=== PATIENT | female | born 1990 | race Caucasian/White ===

== ENCOUNTER → 2017-07-20 15:33 | Outpatient (CLI) | payer BC, OTHER, SELFPAY ==
[2017-07-23 11:12] LABS: HPV Reflexed? NOT INDICATED
== END ==
PROVIDERS: Visit Provider Obstetrics & Gynecology
DX: Z12.4 Encounter for screening for malignant neoplasm of cervix (principal); Z12.72 Encounter for screening for malignant neoplasm of vagina
CPT/HCPCS: 88175; G0145

== ENCOUNTER → 2018-08-08 15:30 | Outpatient (CLI) | payer BC, SELFPAY ==
[2016-07-02 05:49] VITALS: BMI 28.1
[2018-08-10 16:59] LABS: HPV Reflexed? NOT INDICATED
== END ==
PROVIDERS: Visit Provider Obstetrics & Gynecology
DX: N39.0 Urinary tract infection, site not specified (principal); Z12.4 Encounter for screening for malignant neoplasm of cervix
CPT/HCPCS: 87077; 87086; 87088; 87186; 88175; G0145

== ENCOUNTER → 2018-11-23 | Outpatient (CLI) | payer BC, SELFPAY ==
[2016-07-02 05:49] VITALS: BMI 28.1
[2018-11-23 15:58] LABS: Absolute Lymphocyte Count 1.34 X10^3/uL (0.83-4.51); Absolute Neutrophil Count 4.3 X10^3/uL (2.0-7.7); Basophil# 0.03 X10^3/uL; Basophil% 0.5 % (0-1); Eosinophil# 0.07 X10^3/uL; Eosinophils% 1.1 % (0-5); Hemoglobin 12.3 g/dL (12.0-15.0); Lymphocyte # 1.34 X10^3/ul (4.0); Lymphocyte % 21.1 % (19-41); Mean Corp Hgb Conc 34.2 g/dL (32-36); Mean Corpuscular Hgb 31.5 pg (27.0-32.0); Mean Corpuscular Volume 92.3 fL (81-99); Mean Platelet Vol. 10.9 fl (6.2-12.0); Monocyte# 0.62 X10^3/uL; Monocyte% 9.8 % (0-10); NRBC Flagged by Analyzer 0 % (0-5); Neutrophil # 4.26 X10^3/uL (2.7-7.7); Neutrophil % 67.2 % (47-70); Platelet Count 202 K/mm3 (150-450); RBC Distribution Width CV 12.7 % (11.6-14.6); RBC Distribution Width SD 42.8 fl (35.1-43.9); White Blood Count 6.3 K/mm3 (4.4-11.0)
[2018-11-23 16:02] LABS: Thyroid Stim Hormone (TSH) 0.45 uIU/mL (0.358-3.74)
[2018-11-23 16:21] LABS: Color, Urine Yellow (Yellow); Glucose, Dipstick Normal (Normal); Ketone-Dipstick Negative (Negative); Leukocyte Esterase-Dipstick Negative /ul (Negative); Nitrite-Dipstick Negative (Negative); Occult Blood-Urine Negative /ul (Negative); Protein-Dipstick Negative (Negative); Specific Gravity, Urine 1.015 (1.002-1.030); Urine Bilirubin Dipstick Negative (Negative); Urine Clarity Sl. Cloudy (Clear); Urine Urobilinogen Normal (Normal)
[2018-11-23 17:14] LABS: Chlamydia Trachomatis by PCR Negative (Negative); Neisserai gonorrhoeae by PCR Negative (Negative); Probe Check PASS; Sample Adequacy Control PASS; Specimen Processing Control PASS
[2018-11-24 11:48] LABS: HIV - WCH Non-Reactive (Nonreactive); Hepatitis B Surface Antigen Non-Reactive (Nonreactive); Hepatitis C Antibody Non-Reactive (Nonreactive); Rubella IgG 67.7 IU/mL
[2018-11-25 04:46] LABS: Prenatal RPR NONREACTIVE (NONREACTIVE)
[2018-11-29 08:48] LABS: PARVOVIRUS B19 IGG 0.3 index (0.0-0.8); PARVOVIRUS B19 IGM 0.4 index (0.0-0.8)
== END | disposition home or self-care (01) ==
PROVIDERS: Visit Provider Obstetrics & Gynecology
DX: Z34.81 Encounter for supervision of other normal pregnancy, first trimester (principal); Z11.3 Encounter for screening for infections with a predominantly sexual mode of transmission
CPT/HCPCS: 36415; 81002; 84443; 85025; 86703; 86747; 86762; 86803; 87340; 87491; 87591

== ENCOUNTER → 2019-04-13 10:08 | Outpatient (CLI) | payer BC, OTHER, SELFPAY ==
[2019-04-13 11:54] LABS: Hematocrit 32.5 % (37-47); Hemoglobin 10.9 g/dL (12.0-15.0); Mean Corp Hgb Conc 33.5 g/dL (32-36); Mean Corpuscular Hgb 31.6 pg (27.0-32.0); Mean Corpuscular Volume 94.2 fL (81-99); Mean Platelet Vol. 11.1 fl (6.2-12.0); Platelet Count 177 K/mm3 (150-450); RBC Distribution Width CV 12.6 % (11.6-14.6); RBC Distribution Width SD 43.3 fl (35.1-43.9); Red Blood Count 3.45 M/mm3 (4.2-5.4); White Blood Count 7.8 K/mm3 (4.4-11.0)
[2019-04-13 11:59] LABS: Glucose Challenge Gest 1H 50g 128 mg/dL (70-140)
== END ==
PROVIDERS: Referring Provider Obstetrics & Gynecology; Visit Provider Obstetrics & Gynecology
DX: Z34.82 Encounter for supervision of other normal pregnancy, second trimester (principal)
CPT/HCPCS: 36415; 82950; 85027

== ENCOUNTER 2019-07-05 05:10 | Inpatient (IN) | payer OTHER, BC, SELFPAY ==
--- NOTE | 2019-07-03 11:54 | HP.PCM_ITS ---
History and Physical Date of Admission: 07/03/19 HPI: The patient is a 28 year old female presenting for pre-operative visit. She is scheduled for? and?bilateral salpingectomy, for?repeat c/s and sterilization on?07/05/2019. ??Procedure discussed along with risks, benefits and complications. ?Other alternatives discussed for management. Consent form signed??Yes.? PAST MEDICAL HISTORY PAST MEDICAL HISTORY Diagnosis Date ? Anemia ? ? Asthma ? ? Asthma ? ? allergy induced ? Fx wrist ? ? right ? Influenza B ? ? Injury of right shoulder ? ? torn labrum ? ? PAST SURGICAL HISTORY PAST SURGICAL HISTORY Procedure Laterality Date ? SECTION HX ? ? ? x2 ? IUD INSERTION ([employer]PER[employer] DEPT)_*FL ? ? ? removed ? PAST SURGICAL HISTORY OF ? ? ? right shoulder ? ? CURRENT MEDICATIONS Current Outpatient Medications Medication Sig Dispense Refill ? FERROUS SULFATE ORAL Take by mouth. ? ? ? Glntaumb-Ow-Vyn-Fe-FA ( VITAMIN) tab Take 1 tablet by mouth. ? ? ? ALBUTEROL INHALATION Inhale as instructed. ? ? ? No current facility-administered medications for this visit.? ? ALLERGIES:?Patient has no known allergies. ? PERSONAL HISTORY:? SOCIAL HISTORY Social History ? Tobacco Use ? Smoking status: Never Smoker ? Smokeless tobacco: Never Used Substance Use Topics ? Alcohol use: Not Currently ? ? Comment: special occasions only ? Drug use: Never ? FAMILY HISTORY:? FAMILY HISTORY FAMILY HISTORY Problem Relation Age of Onset ? other (fibrocystic breast) Mother ? ? No Known Problems Father ? ? No Known Problems Brother ? ? No Known Problems Maternal Grandmother ? ? Prostate Cancer Maternal Grandfather ? ? Diabetes Paternal Grandmother ? ? Hyperlipidemia Paternal Grandmother ? ? Diabetes Paternal Grandfather ? ? Hyperlipidemia Other ? ? No Known Problems Brother ? ? REVIEW OF SYMPTOMS: GENERAL: denies fevers or chills ENDOCRINOLOGY: has not been on steroids Cardiology : denies palpitations or chest pain Respiratory: denies SOB or cough Hematology: denies history of prolonged bleeding or easy bruising or VTE Allergy: Denies history of personal or family history of allergy to anesthesia ? ? PHYSICAL EXAMINATION: ? VITALS:?Last menstrual period 10/04/2018. ? GENERAL:??The patient is well nourished, well hydrated in no acute distress. ?, The patient is oriented to time, place, and person. NECK:?Supple. No lynphadenopathy, normal thyroid, no thyromegaly. LUNGS:?Clear to auscultation bilaterally. no wheezes, rhonchi or rales HEART:?Regular rate and rhythm, Normal heart sounds and No murmurs or gallops ABD- soft, nontender, gravid ? IMPRESSION:?Estimated Date of Delivery: 07/11/19,?, prevoius c/s and sterilization request ? ? PLAN:???The risks/benefits/alternatives and personal involved for the planned? delivery with bilateral salpingectomy?were reviewed with the patient. Her questions were answered to her satisfaction and she desires to p roceed. ?Consent was signed. ?I reviewed with her postop instructions and expectations. ? ? I have reviewed and updated past medical and surgical history, medications and allergies. This H&P was completed in my office on 07/03/2019. ?
[2019-07-05] VITALS (19 sets, daily range): BP systolic 94–137; BP diastolic 46–87; PULSE 73–94; RESP 14–18; TEMP 36.1–37.1; O2SAT 98–100; BMI 28.3
[2019-07-05] MEDS: Lactated Ringers 1,000 ML 999 ML IV (05:40)
[2019-07-05 05:52] LABS: Absolute Lymphocyte Count 1.99 X10^3/uL (0.83-4.51); Absolute Neutrophil Count 5.1 X10^3/uL (2.0-7.7); Basophil# 0.03 X10^3/uL; Basophil% 0.4 % (0-1); Eosinophil# 0.17 X10^3/uL; Eosinophils% 2.1 % (0-5); Hematocrit 34.7 % (37-47); Hemoglobin 11.4 g/dL (12.0-15.0); Lymphocyte # 1.99 X10^3/ul (4.0); Lymphocyte % 25.1 % (19-41); Mean Corp Hgb Conc 32.9 g/dL (32-36); Mean Corpuscular Hgb 30.9 pg (27.0-32.0); Mean Platelet Vol. 10.6 fl (6.2-12.0); Monocyte# 0.64 X10^3/uL; Monocyte% 8.1 % (0-10); NRBC Flagged by Analyzer 0 % (0-5); Neutrophil # 5.05 X10^3/uL (2.7-7.7); Neutrophil % 63.7 % (47-70); Platelet Count 144 K/mm3 (150-450); RBC Distribution Width CV 13.1 % (11.6-14.6); Red Blood Count 3.69 M/mm3 (4.2-5.4); White Blood Count 7.9 K/mm3 (4.4-11.0)
[2019-07-05] MEDS: Lactated Ringers 1,000 ML 150 ML IV (06:43)
[2019-07-05] MEDS: Sodium Citrate/Citric Acid 30 ML UDC PO (07:08)
[2019-07-05] MEDS: Cefazolin 2 GM in 0.9% Normal Saline 100 ML IV (07:20)
--- NOTE | 2019-07-05 08:26 | OP.PCM_ITS ---
Delivery Classification: Scheduled Final EZEKIEL: 07/11/19 Final EZEKIEL Source: US <20 weeks Gestational age: 39 Weeks and 1 Days water filtration technician: Maksim Santos Type of Anesthesia:: Spinal Special Medications: duramorph Date of Procedure: 07/05/19 Pre-Operative Diagnosis: prevoius c/s, sterilization request Post-Operative Diagnosis: same Indications for : Repeat Elective , Desires elective sterilization Description of Procedure: The patient was taken to the operating room. She was prepped and draped in the dorsal supine position with a leftward tilt. A Pfannenstiel skin incision was made approximately 2 cm above the symphysis pubis and carried through to underlying layer fascia with the scalpel. The fascia was incised incised in the midline and extended laterally with the Alonso scissors. The fascia was dissected off the rectus muscles with blunt and sharp dissection. The rectus muscles were in the midline and the peritoneum was entered bluntly. The peritoneal incision was stretched and the bladder blade was placed. There were no peritoneal adhesions. The uterine incision was made in a low transverse fashion with the scalpel and extended superiorly and inferiorly with blunt dissection. The amniotic membranes were ruptured bluntly and clear amniotic fluid returned. The infant's head was brought to the incision in the flexed position and delivered without difficulty. The remainder of the infant was delivered with gentle traction and fundal pressure in the standard fashion. The mouth and nares were bulb suctioned. The cord was clamped and cut as the was stimulated. Cord clamping was delayed. The was handed off to the waiting nursing staff. The placenta was delivered with fundal massage and gentle traction in the standard fashion. The uterus was exteriorized and cleared of all clots and debris. The cervix was dilated with a ring forcep. The uterine incision was closed with #1 Vicryl in a running locked fashion. The incision was examined and was found to be hemostatic. The uterus was placed back into the peritoneal cavity and hemostasis was again confirmed. The intact mesenteric portion of the fallopian tube was clamped, sealed and transected with the LigaSure device. It was then amputated from the corneal edge. The same procedure was performed on the contralateral side. Both fallopian tubes were handed off and sent to pathology. The rectus muscles were examined and any bleeding was Bovie cauterized. The parietal peritoneum and rectus muscles were closed en bloc with an 0 Vicryl running suture. The surgical teams outer gloves were then changed. The rectus fascia was examined and any bleeding was Bovie cauterized and the rectus fascia was closed with 1 Vicryl suture in a running standard fashion. The subcutaneous tissue was examining and any bleeding was Bovie cauterized. The subcutaneous tissue was reapproximated with 3-0 Vicryl suture. The skin was closed in a subcuticular fashion by the MOTHERCRAFT NURSE with me present in the labor and delivery suite. I performed the remainder of the procedure with assistance. All sponge, lap, and needle counts were correct. The patient was taken to her room for recovery in a stable condition. Amniotic Membrane Rupture Type: Artificial Amniotic Fluid Description: Clear Placenta Disposition: [facility] Specimen(s) sent to pathology: fallopian tubes Drain: Ruiz to straight drain Cord Entanglement: None Cord Vessel Description: 3 Vessels Esitmated Blood Loss (ml): 700 Gender: Male (1 minute): 9 (5 minute): 9 Delayed cord clamping: Yes Antibiotic Given: Ancef 2 grams IV x1 Complications: None - Admit VTE Documentation VTE Present on Admission: No VTE Mechan Device Prophylaxis: SCD's VTE Pharm Prophylaxis ordered?: No
--- NOTE | 2019-07-05 08:30 | FALS_PTH ---
PATIENT: SHAQUILLE MILLER LOC: [facility] U#:[id number] AGE/SX: 28/F ROOM: WP004 RE07/05/[address]: Dr. Haven Meade MD : 1990 BED: 1 DIS: 07/06/2019 SPEC #: [id number] RECD: 07/05/19 08:51 STATUS: TOM KARYN #: [id number] CHARISSE: 07/05/19 08:[address]: Haven Meade DEPT: SURGICAL PATHOLOGY RECD BY: Bowen Knox ENTERED: 07/05/19 10:21 SP TYPE: FALL TUBES OTHR DR: Dr. Brent Dickson MD No Primary Care Phys Tissues: A - Fallopian tube B - Fallopian tube Procedures: Surgery Specimen Level II HEADER OPERATION: Tubal ligation PRE-OP DIAGNOSIS: Sterilization TISSUE SUBMITTED: A - Right fallopian tube, B - Left fallopian tube MICROSCOPIC DIAGNOSIS A. Right fallopian tube, salpingectomy: Complete segment of fallopian tube with no pathologic change. B. Left fallopian tube, salpingectomy: Complete segment of fallopian tube with no pathologic change. AM:lien 07/06/19 MICROSCOPIC DESCRIPTION Slides are reviewed. GROSS DESCRIPTION A - Received is one container labeled with the patient's name and designated right fallopian tube. The specimen consists of a fallopian tube including fimbrial end measuring 8.5 cm in length and 0.7 cm in diameter. Sections reveal unremarkable cut surfaces. Carpenter/Labor sections are submitted in one cassette. B - Received is one container labeled with the patient's name and designated left fallopian tube. The specimen consists of a fallopian tube including fimbrial end measuring 6 cm in length and 0.5 cm in diameter. Sections reveal unremarkable cut surfaces. Carpenter/Labor sections are submitted in one cassette. / SJ:lein 07/05/19 TC:4 CPT: 34704 x2
[2019-07-05] MEDS: Oxytocin 30 units/NS 500 ml 30 UNITS/500 ML IV.SOLN 167 UNITS IV (08:41)
[2019-07-05] MEDS: DiphenhydrAMINE 25 MG Capsule PO (09:46)
[2019-07-05] MEDS: Lactated Ringers 1,000 ML 100 ML IV (11:55)
[2019-07-05] MEDS: 0.9% Saline Lock 10 ML Syringe IV ×2 (14:43→20:12)
[2019-07-05] MEDS: Ketorolac 30 MG/ML Syringe IV ×2 (14:43→20:11)
[2019-07-06] MEDS: Ketorolac 30 MG/ML Syringe IV ×3 (02:30→14:13)
[2019-07-06] MEDS: 0.9% Saline Lock 10 ML Syringe IV ×3 (02:30→14:14)
[2019-07-06 04:25] VITALS: BP 103/59; PULSE 78; RESP 18; TEMP 37.1
[2019-07-06 04:43] LABS: Hematocrit 29.4 % (37-47); Hemoglobin 9.8 g/dL (12.0-15.0); Mean Corp Hgb Conc 33.3 g/dL (32-36); Mean Corpuscular Hgb 31.5 pg (27.0-32.0); Mean Corpuscular Volume 94.5 fL (81-99); Platelet Count 123 K/mm3 (150-450); RBC Distribution Width CV 13.1 % (11.6-14.6); RBC Distribution Width SD 45.1 fl (35.1-43.9); Red Blood Count 3.11 M/mm3 (4.2-5.4); White Blood Count 10.6 K/mm3 (4.4-11.0)
--- NOTE | 2019-07-06 08:40 | PCM.PN.OB ---
Subjective: Pain well controlled. Average lochia. - Physical Exam Vitals/I&O's: Vital Signs Temp Pulse Resp BP Pulse Ox 98.7 F 78 18 103/59 L 99 07/06/19 04:25 07/06/19 04:25 07/06/19 04:25 07/06/19 04:25 07/05/19 20:29 Oxygen Delivery Method Room Air Weight: 70.3 kg Body Mass Index (BMI) 28.3 Intake and Output for Last 24 Hours 07/04/19 07/05/19 07/06/19 23:59 23:59 23:59 Intake Total 3234.83 / 3234.83 Output Total 2660 / 2660 Balance 574.83 / 574.83 General: Alert, Cooperative, No apparent distress Abdomen: Soft, Distended - Mildly, softly, Tender - Appropriately Extremities: Edema - 1+ Skin: Incision - bandage is clean, dry and intact Laboratory Results 07/06/19 04:30: WBC 10.6, RBC 3.11 L, Hgb 9.8 L, Hct 29.4 L, MCV 94.5, MCH 31.5, MCHC 33.3, RDW Std Deviation 45.1 H, RDW Coeff of Sachin 13.1, Plt Count 123 L, MPV 11.0 Current Medications Acetaminophen (Tylenol) 1,000 mg PO Q8H PRN PRN Reason: Pain Score 1-3/10 Bisacodyl (Dulcolax) 10 mg RECTAL UD PRN PRN Reason: If no BM Diphenhydramine HCl (Benadryl) 25 mg PO Q6H PRN PRN PRN Reason: ITCHING Stop: 07/06/19 09:02 Last Admin: 07/05/19 09:46 Dose: 25 mg Documented by: Hydrocortisone (Hytone) 1 applic TOPICAL TID PRN PRN; Protocol PRN Reason: Discomfort Naloxone HCl 4 mg/ Dextrose 504 mls @ 0 mls/hr IV .Q0M PRN; Protocol PRN Reason: Respiratory depression Ketorolac Tromethamine (Toradol (Bkc)) 30 mg IV Q6H BURT Stop: 07/07/19 08:01 Last Admin: 07/06/19 02:30 Dose: 30 mg Documented by: Methylergonovine Maleate (Methergine) 0.2 mg IM X1 PRN PRN Reason: Uterine Atony Nalbuphine HCl (Nubain) 5 mg IV Q3H PRN PRN PRN Reason: ITCHING Stop: 07/06/19 09:02 Naloxone HCl (Narcan) 0.02 mg IV Q1M PRN PRN Reason: RR <10 and pt unresponsive Naproxen (Naprosyn) 250 - 500 mg PO Q8H PRN PRN PRN Reason: Pain Score 1-3/10 Ondansetron HCl (Zofran) 4 mg IV Q4H PRN PRN PRN Reason: Nausea Oxycodone HCl (Oxyir) 5 - 10 mg PO Q4H PRN PRN PRN Reason: Pain Score 4-10/10 Prochlorperazine Edisylate (Compazine Iv) 10 mg IV Q6H PRN PRN PRN Reason: NAUSEA Senna/Docusate Sodium (Senokot-S, Scarlett-Colace) 0 tablet PO DAILY PRN PRN Reason: Constipation Simethicone (Mylicon) 80 mg PO PCHS PRN PRN Reason: Indigestion/stomach pain Sodium Chloride () 5 - 15 ml IV UD PRN PRN Reason: SALINE FLUSH Last Admin: 07/06/19 02:30 Dose: 10 ml Documented by: Medical Necessity - Tobacco Use Smoking Status: Never smoker Assessment/Plan All Active Problems Previous delivery, delivered (Acute) Postoperative day #1 status post repeat section and bilateral salpingectomy. Patient is doing well. Desires discharge home today if okay with pediatrics. Routine instructions reviewed. Acute blood loss anemia appropriate for blood loss during surgery. Patient is tolerating it well.
--- NOTE | 2019-07-06 08:46 | DCINST_ITS ---
Discharge Diet: No Restrictions Discharge Activity: Return to Normal Activity, May Not Drive - for 2 weeks, May not drive while taking narcotic pain medications., May Shower, May Take a Tub Bath - in 7 days. May resume sexual activity in: 4-6 weeks Lifting Restrictions: 20 pounds Additional Activity Instructions:: Nothing in the vagina for 4-6 weeks. You may return to work/school in 6 weeks. Call your doctor if your incision/area has: Continuous Slow Oozing, Sudden Increased Bleeding, Increased Pain/ Swelling, Increased Redness, Foul Smelling Discharge Call your doctor if you observe: Fever of 101 or Higher, Using more than one pad per hour - for 2 hours Suture Line Care: Avoid Pulling/Pushing, Avoid Pinching/Bending Cleanse incision/area with: Keep Dressing Clean & Dry Additional Instructions: If you experience any of the following, contact your healthcare provider. * Bleeding that soaks a pad every hour for 2 hours * Fever 100.4 or higher * Unrelieved incision or abdominal pain * Swelling, redness, discharge or bleeding from your incision or episiotomy site * Your incision begins to separate * Problems urinating (including inability to urinate or burning while urinating). * Visual changes * Severe headache * Flu-like symptoms * Pain or redness in one of both of your breasts * Pain, warmth, tenderness or swelling in your legs, especially the calf area * Frequent nausea and vomiting * Symptoms of depression or anxiety If you experience any of the following, call 911 or go to the nearest Emergency Room. * Chest pain * Problems breathing * Seizure activity * Partial or complete paralysis of a body part, slurred speech, weakness or drooping of the face, or a sudden inability to walk or hold your balance Allergies/Adverse Reactions: Allergies No Known Allergies Allergy (Verified 07/02/16 05:45) Medications to take at Discharge Ferrous Sulfate [Iron] 325 mg PO DAILY 07/01/16 Albuterol Inhaler [Ventolin Hfa] 1 - 2 puff INHALATION Q4H PRN PRN 07/05/19 Vits [Prenatabs FA ] 1 tab PO DAILY 07/05/19 Ibuprofen [Motrin] 800 mg PO TID PRN PRN #60 tab 07/06/19 Oxycodone [Oxyir] 5 mg PO Q6H PRN PRN 7 Days #20 tab 03/19/20 The following prescriptions were given: Ibuprofen [Motrin] 800 mg PO TID PRN PRN #60 tab PRN Reason: Pain Oxycodone [Oxyir] 5 mg PO Q6H PRN PRN 7 Days #20 tab PRN Reason: severe pain Follow-Up: Call to make an appointment with your doctor for an incision check in 1-2 weeks. You will also need a 6 week post- follow up appointment. Test results from this visit will be discussed in further detail at your follow- up appointment, if applicable. Please Follow Up With: Haven Meade MD - Call to make an appointment for an incision check in 1-2 [phone] When: You will need a post check in 6 weeks. Primary Care Physician: Brent Dickson MD [Primary Care Provider] -
[2019-07-06 09:07] VITALS: BP 122/56; PULSE 80; RESP 16; TEMP 37.1; O2SAT 96
[2019-07-06] MEDS: Senna/Docusate Sodium 1 Tablet PO (09:27)
[2019-07-06 14:19] VITALS: BP 129/68; PULSE 76; RESP 18; TEMP 37.2; O2SAT 98
[2019-07-06 14:57] LABS: Pathology Specimen OB SEE PATHOLOGY REPORT
[2019-07-06 16:46] VITALS: RESP 18
== END 2019-07-06 16:45 | disposition home or self-care (01) | DRG 785 ==
PROVIDERS: Admitting Provider Obstetrics & Gynecology; PCP Family Medicine; Referring Provider Obstetrics & Gynecology; Visit Provider Obstetrics & Gynecology
PROC: 10D00Z1 Extraction of Products of Conception, Low, Open Approach (ICD-10-PCS; CPT 59514; principal; 2019-07-05 07:15)
DX: O34.211 Maternal care for low transverse scar from previous cesarean delivery (principal); O99.02 Anemia complicating childbirth; D64.9 Anemia, unspecified; Z30.2 Encounter for sterilization; Z3A.39 39 weeks gestation of pregnancy; Z37.0 Single live birth
CPT/HCPCS: 85025; 85027; 86850; 86900; 86901; 88302; 99218; J7120; A4216; G0378; J2405